=== PATIENT | female | born 1945 | race African-American/Black ===

== ENCOUNTER 2016-12-01 07:06 | Outpatient (CLI) | payer MEDICARE, OTHER ==
[2016-12-01 08:39] LABS: ALT (SGPT) 18 U/L (0-55); AST (SGOT) 23 U/L (5-34); Albumin 2.7 g/dL (3.4-4.8); Alkaline Phosphatase 132 U/L (40-150); Anion Gap 14 mmol/L (10-20); BUN (Urea Nitrogen) 13 mg/dL (9.8-20.1); Bilirubin, Total 0.2 mg/dL (0.2-1.2); Calc. Creatinine Clearance 0 mL/min (70-130); Calcium 8.2 mg/dL (7.8-10.44); Carbon Dioxide 25 mmol/L (23-31); Chloride 111 mmol/L (98-107); Dilantin 6.6 ug/mL (10.0-20.0); Estimated GFR-MDRD 28; Globulin 4.8 g/dL (2.4-3.5); Glucose 84 mg/dL (83-110); Potassium 3.9 mmol/L (3.5-5.1); Protein, Total 7.5 g/dL (5.8-8.1); Sodium 146 mmol/L (136-145)
[2016-12-01 09:02] LABS: Free T4 (Free Thyroxine) 0.99 ng/dL (0.70-1.48); Thyroid Stimulating Hormone 0.9875 uIU/mL (0.35-4.94)
[2016-12-01 10:24] LABS: #Basophils 0.1 thou/uL (0.0-0.2); #Lymphocytes 2.4 thou/uL (1.20-3.40); #Monocytes 0.6 thou/uL (0.11-0.59); #Neutrophils 2.8 thou/uL (1.40-6.50); %Basophils 1.3 % (0.0-1.0); %Eosinophils 0.5 % (0.0-10.0); %Lymphocytes 40.4 % (21.0-51.0); %Monocytes 9.6 % (0.0-10.0); %Neutrophils 48.1 % (42.0-75.0); Anisocytosis SLIGHT = 6-15 cells (100X) (0-5/hpf); Hemoglobin 9.1 g/dL (12.0-16.0); Hypochromia SLIGHT = 6-15 cells (100X) (0-5/hpf); MDiff Complete? YES; Macrocytosis SLIGHT = 6-15 cells (100X) (0-5/hpf); Mean Corpuscular HGB CONC 30.6 g/dL (32.0-36.0); Mean Corpuscular Hemoglobin 30.8 pg (27.0-31.0); Mean Platelet Volume 6.6 fL (7.4-10.4); PLT Morphology Comment Appears Adequate; Platelet Count 256 thou/uL (130-400); RBC Distribution Width 18.7 % (11.5-14.5); Red Blood Cell (RBC) Count 2.94 mill/uL (4.20-5.40); White Blood Cell (WBC) Count 5.8 thou/uL (4.8-10.8)
== END 2016-12-01 07:07 | disposition home or self-care (01) ==
LOC: NAV LABSP 07:06
PROVIDERS: ATTEND Family Medicine
DX: A41.9 Sepsis, unspecified organism (principal); N39.0 Urinary tract infection, site not specified; R00.0 Tachycardia, unspecified; Z95.810 Presence of automatic (implantable) cardiac defibrillator
CPT/HCPCS: 36415; 80053; 80185; 84439; 84443; 85025

== ENCOUNTER 2016-12-05 14:09 | Outpatient (CLI) | payer MEDICARE, OTHER ==
[2016-12-05 21:49] LABS: Bilirubin Negative (Negative); Blood, Urine Negative (Negative); Clarity Clear (Clear); Glucose, Urine (Dipstick) Negative (Negative); Leukocyte Negative (Negative); Nitrite Negative (Negative); Protein, Urine (Dipstick) > or equal to 300 mg/dL (Neg-Trace); Urobilinogen 0.2 mg/dL (0.2-1.0); pH, Urine 6.5 (5.0-9.0)
[2016-12-05 22:17] LABS: RBC/HPF None Seen HPF (0-3)
[2016-12-05 22:18] LABS: Bacteria/HPF Rare-Few HPF (None Seen); Squamous Epithelial None Seen HPF (0-3); WBC/HPF None Seen HPF (0-3)
== END 2016-12-05 14:10 | disposition home or self-care (01) ==
LOC: NAV LABSP 14:09
PROVIDERS: ATTEND Family Medicine
DX: N39.0 Urinary tract infection, site not specified (principal); A41.9 Sepsis, unspecified organism; R19.7 Diarrhea, unspecified
CPT/HCPCS: 81003; 81015; 87086; 87324; 87449

== ENCOUNTER 2016-12-08 08:45 | Outpatient (CLI) | payer MEDICARE, OTHER ==
[2016-12-08 10:26] LABS: Anion Gap 16 mmol/L (10-20); BUN (Urea Nitrogen) 21 mg/dL (9.8-20.1); Calc. Creatinine Clearance 0 mL/min (70-130); Calcium 8.3 mg/dL (7.8-10.44); Carbon Dioxide 20 mmol/L (23-31); Chloride 111 mmol/L (98-107); Estimated GFR-MDRD 28; Glucose 88 mg/dL (83-110); Potassium 3.7 mmol/L (3.5-5.1); Sodium 143 mmol/L (136-145)
[2016-12-08 10:55] LABS: Anisocytosis SLIGHT = 6-15 cells (100X) (0-5/hpf); Band 9 % (5-11); Hemoglobin 9.9 g/dL (12.0-16.0); Hypochromia SLIGHT = 6-15 cells (100X) (0-5/hpf); Lymphocytes 32 % (21-51); MDiff Complete? YES; Macrocytosis SLIGHT = 6-15 cells (100X) (0-5/hpf); Mean Corpuscular HGB CONC 30.2 g/dL (32.0-36.0); Mean Corpuscular Hemoglobin 30.2 pg (27.0-31.0); Monocytes 9 % (0-10); Neutrophil 50 % (42-75); PLT Morphology Comment Appears Adequate; Platelet Count 307 thou/uL (130-400); Red Blood Cell (RBC) Count 3.29 mill/uL (4.20-5.40); Target Cells MODERATE= 6-15 cells (100X) (0-1/hpf)
== END 2016-12-08 08:46 | disposition home or self-care (01) ==
LOC: NAV LABSP 08:45
PROVIDERS: ATTEND Family Medicine
DX: A41.9 Sepsis, unspecified organism (principal)
CPT/HCPCS: 36415; 80048; 85025

== ENCOUNTER 2017-01-09 07:32 | Outpatient (CLI) | payer MEDICARE, OTHER ==
[2017-01-09 09:04] LABS: #Eosinphils 0.1 thou/uL (0.0-0.7); #Lymphocytes 1.9 thou/uL (1.20-3.40); #Monocytes 0.5 thou/uL (0.11-0.59); %Basophils 0.7 % (0.0-1.0); %Eosinophils 3.2 % (0.0-10.0); %Monocytes 11.2 % (0.0-10.0); %Neutrophils 42.9 % (42.0-75.0); Hemoglobin 10.9 g/dL (12.0-16.0); Mean Corpuscular HGB CONC 30.1 g/dL (32.0-36.0); Mean Corpuscular Hemoglobin 29.3 pg (27.0-31.0); Mean Corpuscular Volume 97.6 fl (81.0-99.0); Mean Platelet Volume 7.1 fL (7.4-10.4); Platelet Count 260 thou/uL (130-400); RBC Distribution Width 14.3 % (11.5-14.5); Red Blood Cell (RBC) Count 3.71 mill/uL (4.20-5.40); White Blood Cell (WBC) Count 4.6 thou/uL (4.8-10.8)
[2017-01-09 09:05] LABS: Anisocytosis SLIGHT = 6-15 cells (100X) (0-5/hpf); Hypochromia SLIGHT = 6-15 cells (100X) (0-5/hpf); MDiff Complete? YES; PLT Morphology Comment Appears Adequate; Target Cells MODERATE= 6-15 cells (100X) (0-1/hpf)
== END 2017-01-09 07:33 | disposition home or self-care (01) ==
LOC: NAV LABSP 07:32
PROVIDERS: ATTEND Family Medicine
DX: A04.7 Enterocolitis due to Clostridium difficile (principal); N18.9 Chronic kidney disease, unspecified; R00.0 Tachycardia, unspecified; R56.9 Unspecified convulsions
CPT/HCPCS: 36415; 85025

== ENCOUNTER 2017-01-14 09:10 | Outpatient (CLI) | payer MEDICARE, OTHER ==
[2017-01-14 10:13] LABS: Anion Gap 13 mmol/L (10-20); BUN (Urea Nitrogen) 19 mg/dL (9.8-20.1); Calc. Creatinine Clearance 0 mL/min (70-130); Calcium 8.6 mg/dL (7.8-10.44); Carbon Dioxide 24 mmol/L (23-31); Chloride 110 mmol/L (98-107); Estimated GFR-MDRD 40; Glucose 78 mg/dL (83-110); Potassium 4.2 mmol/L (3.5-5.1); Sodium 143 mmol/L (136-145)
== END 2017-01-14 09:11 | disposition home or self-care (01) ==
LOC: NAV LABSP 09:10
PROVIDERS: ATTEND Family Medicine
DX: N18.9 Chronic kidney disease, unspecified (principal)
CPT/HCPCS: 36415; 80048

== ENCOUNTER 2017-03-09 08:52 | Outpatient (CLI) | payer MEDICARE, OTHER ==
[2017-03-09 09:48] LABS: ALT (SGPT) 25 U/L (8-55); AST (SGOT) 24 U/L (5-34); Albumin 3.2 g/dL (3.4-4.8); Alkaline Phosphatase 98 U/L (40-150); Anion Gap 12 mmol/L (10-20); BUN (Urea Nitrogen) 22 mg/dL (9.8-20.1); Bilirubin, Total 0.2 mg/dL (0.2-1.2); Calc. Creatinine Clearance 0 mL/min (70-130); Calcium 8.9 mg/dL (7.8-10.44); Carbon Dioxide 25 mmol/L (23-31); Chloride 109 mmol/L (98-107); Estimated GFR-MDRD 36; Globulin 5.4 g/dL (2.4-3.5); Glucose 77 mg/dL (83-110); Protein, Total 8.6 g/dL (6.0-8.3); Sodium 142 mmol/L (136-145)
[2017-03-09 11:15] LABS: #Eosinphils 0.1 thou/uL (0.0-0.7); #Monocytes 0.5 thou/uL (0.11-0.59); #Neutrophils 2.3 thou/uL (1.40-6.50); %Basophils 0.9 % (0.0-1.0); %Lymphocytes 40.4 % (21.0-51.0); %Monocytes 10.8 % (0.0-10.0); %Neutrophils 45.9 % (42.0-75.0); Hemoglobin 11.4 g/dL (12.0-16.0); MDiff Complete? YES; Mean Corpuscular Hemoglobin 28.4 pg (27.0-31.0); Mean Corpuscular Volume 91.7 fl (81.0-99.0); Mean Platelet Volume 7.8 fL (7.4-10.4); Platelet Count 209 thou/uL (130-400); RBC Distribution Width 13.8 % (11.5-14.5); Red Blood Cell (RBC) Count 4.02 mill/uL (4.20-5.40); Target Cells SLIGHT = 2-5 cells (100X) (0-1/hpf)
[2017-03-09 17:46] LABS: Dilantin 3.1 ug/mL (10.0-20.0)
== END 2017-03-09 08:53 | disposition home or self-care (01) ==
LOC: NAV LABSP 08:52
PROVIDERS: ATTEND Family Medicine
DX: R56.9 Unspecified convulsions (principal); A41.9 Sepsis, unspecified organism; N39.0 Urinary tract infection, site not specified; N18.9 Chronic kidney disease, unspecified; R00.0 Tachycardia, unspecified
CPT/HCPCS: 36415; 80053; 80185; 84443; 85025

== ENCOUNTER 2017-04-02 07:37 | Outpatient (CLI) | payer MEDICARE, OTHER ==
[2017-04-02 08:13] LABS: Anion Gap 12 mmol/L (10-20); BUN (Urea Nitrogen) 22 mg/dL (9.8-20.1); Calc. Creatinine Clearance 0 mL/min (70-130); Calcium 8.7 mg/dL (7.8-10.44); Carbon Dioxide 25 mmol/L (23-31); Chloride 111 mmol/L (98-107); Estimated GFR-MDRD 35; Glucose 68 mg/dL (83-110); Potassium 4.6 mmol/L (3.5-5.1); Sodium 143 mmol/L (136-145)
[2017-04-02 17:47] LABS: Iron 41 ug/dL (50-170); Iron Binding Capacity, Total 250 mcg/dL (265-497)
== END 2017-04-02 07:38 | disposition home or self-care (01) ==
LOC: NAV LABSP 07:37
PROVIDERS: ATTEND Family Medicine
DX: N18.9 Chronic kidney disease, unspecified (principal); D63.1 Anemia in chronic kidney disease
CPT/HCPCS: 36415; 80048; 83540; 83550; 85014; 85018

== ENCOUNTER 2017-04-07 10:21 | Outpatient (CLI) | payer MEDICARE, OTHER ==
[2017-04-07 11:37] LABS: #Eosinphils 0.1 thou/uL (0.0-0.7); #Lymphocytes 1.8 thou/uL (1.20-3.40); #Monocytes 0.6 thou/uL (0.11-0.59); #Neutrophils 1.7 thou/uL (1.40-6.50); %Basophils 0.9 % (0.0-1.0); %Eosinophils 3.4 % (0.0-10.0); %Lymphocytes 41.1 % (21.0-51.0); %Monocytes 14.3 % (0.0-10.0); %Neutrophils 40.2 % (42.0-75.0); Anisocytosis SLIGHT = 6-15 cells (100X) (0-5/hpf); Hemoglobin 12.2 g/dL (12.0-16.0); MDiff Complete? YES; Mean Corpuscular HGB CONC 31.4 g/dL (32.0-36.0); Mean Corpuscular Hemoglobin 28.1 pg (27.0-31.0); Mean Corpuscular Volume 89.6 fl (81.0-99.0); Mean Platelet Volume 7.3 fL (7.4-10.4); Platelet Count 194 thou/uL (130-400); RBC Distribution Width 14.5 % (11.5-14.5); Red Blood Cell (RBC) Count 4.36 mill/uL (4.20-5.40); Target Cells SLIGHT = 2-5 cells (100X) (0-1/hpf); White Blood Cell (WBC) Count 4.3 thou/uL (4.8-10.8)
== END 2017-04-07 10:22 | disposition home or self-care (01) ==
LOC: NAV LABSP 10:21
PROVIDERS: ATTEND Family Medicine
DX: N18.9 Chronic kidney disease, unspecified (principal); R56.9 Unspecified convulsions; R00.0 Tachycardia, unspecified; K21.9 Gastro-esophageal reflux disease without esophagitis; N39.0 Urinary tract infection, site not specified; R52 Pain, unspecified; R05 Cough
CPT/HCPCS: 36415; 80185; 85025

== ENCOUNTER 2017-08-21 13:19 | Outpatient (CLI) | payer MEDICARE, OTHER ==
[2017-08-21 13:28] LABS: #Monocytes 0.8 thou/uL (0.11-0.59); #Neutrophils 4.5 thou/uL (1.40-6.50); %Basophils 0.5 % (0.0-1.0); %Eosinophils 0.5 % (0.0-10.0); %Lymphocytes 15.4 % (21.0-51.0); %Monocytes 12.6 % (0.0-10.0); Hemoglobin 12.7 g/dL (12.0-16.0); Mean Corpuscular Volume 93.6 fl (81.0-99.0); Mean Platelet Volume 8.2 fL (7.4-10.4); Platelet Count 237 thou/uL (130-400); RBC Distribution Width 13.3 % (11.5-14.5); Red Blood Cell (RBC) Count 4.38 mill/uL (4.20-5.40); White Blood Cell (WBC) Count 6.3 thou/uL (4.8-10.8)
[2017-08-21 13:43] LABS: ALT (SGPT) 14 U/L (8-55); AST (SGOT) 17 U/L (5-34); Albumin 3.6 g/dL (3.4-4.8); Alkaline Phosphatase 118 U/L (40-150); Anion Gap 13 mmol/L (10-20); BUN (Urea Nitrogen) 28 mg/dL (9.8-20.1); Bilirubin, Total 0.2 mg/dL (0.2-1.2); Calc. Creatinine Clearance 0 mL/min (70-130); Calcium 9.3 mg/dL (7.8-10.44); Carbon Dioxide 25 mmol/L (23-31); Chloride 109 mmol/L (98-107); Estimated GFR-MDRD 23; Globulin 6.2 g/dL (2.4-3.5); Glucose 108 mg/dL (83-110); Potassium 4.2 mmol/L (3.5-5.1); Protein, Total 9.8 g/dL (6.0-8.3); Sodium 143 mmol/L (136-145)
[2017-08-21 15:01] LABS: Dilantin 17.5 ug/mL (10.0-20.0)
== END 2017-08-21 13:20 | disposition home or self-care (01) ==
LOC: NAV LABSP 13:19
PROVIDERS: ATTEND Family Medicine
DX: A41.9 Sepsis, unspecified organism (principal); N18.9 Chronic kidney disease, unspecified; R56.9 Unspecified convulsions
CPT/HCPCS: 36415; 80053; 80185; 85025

== ENCOUNTER 2019-01-09 13:06 | Outpatient (CLI) | payer MEDICARE | END 2019-01-09 13:07 | disposition home or self-care (01) | LOC: NAV NNR 13:06 | PROVIDERS: ATTEND Internal Medicine | DX: A41.9 Sepsis, unspecified organism (principal); R65.20 Severe sepsis without septic shock; N18.9 Chronic kidney disease, unspecified; R56.9 Unspecified convulsions; N39.0 Urinary tract infection, site not specified; Z79.899 Other long term (current) drug therapy | CPT/HCPCS: 80185 ==

== ENCOUNTER 2019-01-12 06:32 | Outpatient (CLI) | payer MEDICARE, MEDICAID | END 2019-01-12 06:33 | disposition home or self-care (01) | LOC: NAV LABSP 06:32 | PROVIDERS: ATTEND Internal Medicine | DX: A41.9 Sepsis, unspecified organism (principal); R65.20 Severe sepsis without septic shock; N18.9 Chronic kidney disease, unspecified; R56.9 Unspecified convulsions; N39.0 Urinary tract infection, site not specified; Z79.899 Other long term (current) drug therapy | CPT/HCPCS: 36415; 80185 ==

== ENCOUNTER 2019-01-19 07:08 | Outpatient (CLI) | payer MEDICARE, OTHER | END 2019-01-19 07:09 | disposition home or self-care (01) | LOC: NAV LAB 07:08 | PROVIDERS: ATTEND Internal Medicine | DX: A41.9 Sepsis, unspecified organism (principal); R65.20 Severe sepsis without septic shock; N18.9 Chronic kidney disease, unspecified; N39.0 Urinary tract infection, site not specified; R56.9 Unspecified convulsions; Z79.899 Other long term (current) drug therapy | CPT/HCPCS: 80185 ==

== ENCOUNTER 2019-01-24 06:30 | Outpatient (CLI) | payer MEDICARE, OTHER | END 2019-01-24 06:31 | disposition home or self-care (01) | LOC: NAV LAB 06:30 | PROVIDERS: ATTEND Internal Medicine | DX: A41.9 Sepsis, unspecified organism (principal); R65.20 Severe sepsis without septic shock; N18.9 Chronic kidney disease, unspecified; R56.9 Unspecified convulsions; N39.0 Urinary tract infection, site not specified; Z79.899 Other long term (current) drug therapy | CPT/HCPCS: 80185 ==